=== PATIENT | male | born 1960 | race Caucasian/White ===

== ENCOUNTER 2023-04-01 22:30 | Observation (INO) ==
[2023-04-01 23:05] LABS: Basophils # (auto) 0.04 K/uL (0-0.2); Basophils % (auto) 0.4 %; Eosinophils # (auto) 0.11 K/uL (0-0.50); Hematocrit (blood only) 36.5 % (42.0-52.0); Hemoglobin 12.9 g/dl (14.0-18.0); Immature Granulocytes # (auto) 0.02 K/uL (0.01-0.20); Immature Granulocytes % (auto) 0.2 %; Lymphocytes % (auto) 15.8 %; Mean Corpuscular Hemoglobin 30.5 pg (25.0-34.0); Mean Corpuscular Hgb Conc 35.3 g/dL (32.0-36.0); Mean Corpuscular Volume 86.3 fL (80.0-100.0); Mean Platelet Volume 9.7 fL (9.4-12.4); Monocytes # (auto) 1.06 K/uL (0.11-0.59); Monocytes % (auto) 9.9 %; Neutrophils # (auto) 7.83 K/uL (1.40-6.50); Neutrophils % (auto) 72.7 %; Platelet Count 220 K/uL (130-400); RDW Standard Deviation 43.9 fL (36.4-46.3); Red Blood Count 4.23 M/uL (4.70-6.10); White Blood Count 10.76 K/ul (4.8-10.8)
[2023-04-01 23:21] LABS: Albumin Globulin Ratio 1.3 (0.9-2); Albumin Level 4.2 gm/dl (3.4-5.0); BUN Creatinine Ratio 15.7 (10-20); Bilirubin,Total 1.2 mg/dl (0.2-1.0); Calcium 9.1 mg/dl (8.6-10.3); Creatinine Clr Calc Pharmacy 79.6 ml/min; Est GFR (African American) 83.6 ml/min; Est GFR (Non-African American) 72.2 ml/min; Globulin 3.2 gm/dl (2.5-4.0); Potassium 3.7 mmol/L (3.5-5.1); Total Protein 7.4 gm/dl (6.0-8.3)
[2023-04-02 00:18] LABS: Appearance Urine Clear (Clear); Bilirubin Urine Negative (Negative); Blood Urine Negative (Negative); Color Urine Yellow; Glucose Urine UA 1+ (Negative); Ketones Urine Trace (Negative); Leukocyte Esterase Urine Negative (Negative); Nitrite Urine Negative (Negative); Protein Urine Negative (Negative); Specific Gravity Urine 1.016 (1.000-1.030); Urobilinogen Urine Negative (Negative); pH Urine 5.5 (4.5-7.5)
[2023-04-02] MEDS ORDERED: SODIUM CHLORIDE 0.9% 1000ML 1,000 ML IV ONE (00:43)
--- NOTE | 2023-04-02 00:49 | Emergency Department Note ---
Impression & Plan Diverticulitis of colon with perforation Admit to the [facility] ED Provider Note NAME: MANUEL SHAFER AGE: 62 SEX: M ARRIVES VIA: Walk-In INFORMANT: Patient and his ED PROVIDER(S): Terrie Reyes DO CHIEF COMPLAINT: Left lower quadrant abdominal pain PLAN: Disposition: Admit to the [facility] Condition: Guarded MEDICAL DECISION MAKING: This is a 62-year-old male patient who presents to the emergency department with left lower quadrant abdominal pain and chest congestion. Patient is also been complaining of some constipation for which she has been trying stool softeners. Symptoms have not been improving. Laboratory studies reveal no leukocytosis. Hemoglobin is stable at 12.9. The patient does have a mildly elevated glucose at 178. The patient is a [id number] diabetic. On physical exam, the patient has moderate discomfort to palpation in the left lower quadrant of the abdomen. Patient has had previous colonoscopies which show evidence of diverticulosis. He has had previous episodes of diverticulitis. CT scan of the abdomen/pelvis does show evidence of acute diverticulitis with possible microperforation. Patient will be treated with IV ceftriaxone and IV Flagyl. He will be placed on continued IV normal saline solution. I discussed the case with the [employer] and they will evaluate for further inpatient care. Triage Nursing notes reviewed and agree with them. Additional history obtained from the patient's is at the bedside Vital Signs: reviewed and unremarkable Differential diagnosis: Constipation, diverticulitis, colitis, dehydration ER treatment provided: Cardiac monitoring IV normal saline bolus IV ceftriaxone IV Flagyl Diagnostics interpreted by me: Cardiac Monitoring: Normal sinus rhythm at a rate of 93 Laboratory studies: See below Imaging studies: As per stat rad CT scan of the abdomen/pelvis: See report HPI: 62/M arrives for evaluation of left lower quadrant abdominal pain. Patient describes developing left lower quadrant abdominal pain approximately 3 days ago. He thought he may be constipated so he took stool softeners but got no relief. He is also developed some chest congestion with a productive cough of clear sputum. He is not a smoker. He denies any nausea or vomiting. PAST MEDICAL HISTORY:See Below PAST SURGICAL HISTORY:See Below FAMILY HISTORY:See Below SOCIAL HISTORY:See Below HOME MEDICATIONS:See list ALLERGIES:See list VITALS:See Below PHYSICAL EXAMINATION: HEENT: Head - normocephalic and atraumatic. Pupils are equal, round, and reactive to light. Extraocular eye muscles are intact, and sclera are anicteric. Nose - moist nasal mucosa without discharge. Mouth - moist buccal mucosa. Oropharynx is nonerythematous and there is no tonsillar exudate or edema noted. Neck: Supple; no JVD, nuchal rigidity, cervical lymphadenopathy, or auscultated bruits. Heart: Regular rate and rhythm. There is a normal S1 and S2 with no murmurs, clicks, or gallops appreciated. Lungs: Clear to auscultation bilaterally with no wheezes, rales, or rhonchi. Abdomen: Soft, exquisitely tender to touch in the left lower quadrant of the abd omen, with good bowel sounds. There are no palpable pulsatile masses or hepatosplenomegaly. There is no guarding, rigidity, or rebound noted. Extremities: No evidence of cyanosis, clubbing, or edema. There are easily palpable peripheral pulses. Skin: warm and dry with good turgor and no rashes. ED COURSE: Times/Reassessments: 0030: Patient was evaluated in room B9. A complete history and physical was performed. An order was placed for continuous cardiac monitoring. The patient was in a normal sinus rhythm at a rate of 93. IV lock was initiated and labs were drawn as above. Patient was bolused with a liter of normal saline solution. Patient will go for CT scan of the abdomen/pelvis. After an extended period of time, the CT was finally read by stat rad. I reviewed these results with the patient and his . He was treated with IV Rocephin and IV Flagyl. He was started on IV normal saline drip. I discussed the case with the [facility] Hospitalist and they will evaluate for further inpatient care. Terrie Reyes DO Past Med/Surg History Medical History Anemia, normocytic normochromic COVID-19 (~11/25/20) Diabetes Hypertension Hypothyroid Surgical History No pertinent past surgical history S/P appendectomy S/P knee surgery Family History Mother Lung cancer Father Stroke Stomach cancer Denies family history of Ovarian cancer Prostate cancer Myocardial infarction Breast cancer Colorectal cancer Social History Smoking Status: Never smoker Second Hand Exposure: No; Do You Dip or Chew Tobacco: No; Hx Alcohol Use: No Hx Substance Use: No Preferred Language: Guamanian Communication Ability: Effective Visual Impairment: No Limitations Hearing Ability: Normal Framing Consultant Required: No Beliefs That Will Affect Care: None marital status: Current Living Situation: Spouse current occupational status: employed How many Children do You have: 2 Feels Safe at Home: Yes Childhood Exposure to Second-Hand Smoke: Yes Diet: regular Diet Comment: Regular caffeine: Yes during the past year weight has: remained stable Dental Care, Regularly: Yes Physical Activity Frequency: Daily Seatbelt Use: sometimes Sunscreen Use: No Allergies Allergies Allergy/AdvReac Type Severity Reaction Status Date / Time loperamide [From Imodium A-D] Allergy Mild Rash Verified 08/11/22 07:53 Penicillins Allergy Rash Verified 08/11/22 07:53 Home Meds Home Medications Medication Instructions Recorded Confirmed aspirin 81 mg tablet,delayed 81 mg PO QAM 03/21/19 08/11/22 release blood-glucose meter #1 ea 03/12/20 08/11/22 lancets #50 ea 03/12/20 08/11/22 ferrous sulfate 325 mg (65 mg 325 mg PO DAILY 08/11/22 08/11/22 iron) tablet,delayed release Previous Rx's Medication Instructions Recorded blood sugar diagnostic #100 ea 05/19/21 levothyroxine 75 mcg tablet 75 mcg PO DAILY #90 tabs 02/05/22 amlodipine 5 mg tablet 5 mg PO DAILY #90 tabs 06/02/22 atorvastatin 40 mg tablet 40 mg PO QAM #90 tabs 06/26/22 losartan 100 mg tablet 100 mg PO QAM #90 tabs 10/12/22 glipizide 10 mg tablet, extended 10 mg PO DAILY #90 tabs 01/06/23 release 24 hr metformin 500 mg tablet,extended See Rx Instructions PO .COMPLEX 03/11/23 release 24 hr #120 tabs Results & Data (ED) Vital Signs Vital Signs - 24 hr 04/01/23 22:30 04/02/23 00:01 04/02/23 02:15 Temperature 36.7 C Temperature Source Temporal Artery Scan Pulse Rate 104 H Pulse Rate [Finger] 93 H 90 Respiratory Rate 18 20 16 Respiratory Effort / Characteristics Non-Labored Spontaneous Non-Labored Spontaneous Respiratory Depth Normal Normal Blood Pressure 165/86 H Blood Pressure [Left Arm] 129/80 114/60 Blood Pressure Mean 112 Blood Pressure Mean [Left Arm] 96 78 Blood Pressure Position Sitting Pulse Oximetry 97 95 94 Oxygen Delivery Method Room Air Room Air Sepsis Recent Fever Within 48 Hours No Sepsis New/Unexplained Change in Mental Status No Sepsis Action Taken by Nursing No Action Required 04/02/23 04:11 Temperature Temperature Source Pulse Rate Pulse Rate [Finger] 82 Respiratory Rate 18 Respiratory Effort / Characteristics Respiratory Depth Blood Pressure Blood Pressure [Left Arm] 102/65 Blood Pressure Mean Blood Pressure Mean [Left Arm] 77 Blood Pressure Position Pulse Oximetry 95 Oxygen Delivery Method Room Air Sepsis Recent Fever Within 48 Hours Sepsis New/Unexplained Change in Mental Status Sepsis Action Taken by Nursing Laboratory Data 04/01/23 22:40 04/01/23 22:40 Lab Results 04/01/23 04/01/23 04/02/23 Range/Units 22:40 22:40 Unknown WBC 10.76 (4.8-10.8) K/ul RBC 4.23 L (4.70-6.10) M/uL Hgb 12.9 L (14.0-18.0) g/dl Hct 36.5 L (42.0-52.0) % MCV 86.3 (80.0-100.0) fL MCH 30.5 (25.0-34.0) pg MCHC 35.3 (32.0-36.0) g/dL RDW Std Deviation 43.9 (36.4-46.3) fL RDW Coeff of Felice 14.0 (11.5-14.5) % Plt Count 220 (130-400) K/uL MPV 9.7 (9.4-12.4) fL Immature Gran % (Auto) 0.2 % Neut % (Auto) 72.7 % Lymph % (Auto) 15.8 % [place] % (Auto) 9.9 % Eos % (Auto) 1.0 % Baso % (Auto) 0.4 % Neut # (Auto) 7.83 H (1.40-6.50) K/uL Lymph # (Auto) 1.70 (1.2-3.4) K/uL [place] # (Auto) 1.06 H (0.11-0.59) K/uL Eos # (Auto) 0.11 (0-0.50) K/uL Baso # (Auto) 0.04 (0-0.2) K/uL Immature Gran # (Auto) 0.02 (0.01-0.20) K/uL Sodium 135 L (136-145) mmol/L Potassium 3.7 (3.5-5.1) mmol/L Chloride 100 (98-107) mmol/L Carbon Dioxide 27 (21-32) mmol/L Anion Gap 8 (3-11) BUN 17 (6-23) mg/dl Creatinine 1.08 (0.6-1.4) mg/dl Est Cr Clr Drug Dosing 79.6 ml/min Est GFR ( Amer) 83.6 ml/min Est GFR (Non-Af Amer) 72.2 ml/min BUN/Creatinine Ratio 15.7 (10-20) Glucose 178 H (70-99(Fasting)) mg/dl Calcium 9.1 (8.6-10.3) mg/dl Total Bilirubin 1.2 H (0.2-1.0) mg/dl AST 14 (13-39) U/L ALT 12 (7-52) U/L Alkaline Phosphatase 62 (34-104) U/L Total Protein 7.4 (6.0-8.3) gm/dl Albumin 4.2 (3.4-5.0) gm/dl Globulin 3.2 (2.5-4.0) gm/dl Albumin/Globulin Ratio 1.3 (0.9-2) Lipase 134 H (11-82) U/L Urine Color Yellow Urine Appearance Clear (Clear) Urine pH 5.5 (4.5-7.5) Ur Specific [place] 1.016 (1.000-1.030) Urine Protein Negative (Negative) Urine Glucose (UA) 1+ H (Negative) Urine Ketones Trace H (Negative) Urine Blood Negative (Negative) Urine Nitrite Negative (Negative) Urine Bilirubin Negative (Negative) Urine Urobilinogen Negative (Negative) Ur Leukocyte Esterase Negative (Negative) Administered Medications Sodium Chloride (Nss) 500 mls @ 125 mls/hr IV .Q4H EILEEN Stop: 05/02/23 05:14 Last Admin: 04/02/23 05:36 Dose: 125 mls/hr Documented By: KURT Discontinued Medications Sodium Chloride (Nss 1000ml) 1,000 mls @ 999 mls/hr IV .Q1H1M ONE Stop: 04/02/23 01:43 Last Infusion: 04/02/23 02:52 Dose: 0 mls/hr Documented By: Admin: 04/02/23 01:42 Dose: 999 mls/hr Documented By: SALLY Metronidazole (Flagyl) 500 mg in 100 mls @ 100 mls/hr IV NOW STA; Protocol Stop: 04/02/23 06:03 Last Admin: 04/02/23 05:41 Dose: 100 mls/hr Documented By: KURT Ioversol (Optiray 320 100ml) 100 ml IV ONCE ONE Stop: 04/02/23 01:30 Last Admin: 04/02/23 01:29 Dose: 93 ml Documented By: BERNARDINO Imaging Data Radiologist's Impression: Abdomen/Pelvis CT 04/02/23 00:43 Exam(s): CT ABDOMEN + PELVIS With Contrast IV Amt: 93 ML OPTIRAY 320 EXAM: CT Abdomen and Pelvis With Intravenous Contrast CLINICAL HISTORY: Reason for exam: eval for diverticulitis. TECHNIQUE: Axial computed tomography images of the abdomen and pelvis with intravenous contrast. CTDI is 26.11 mGy and DLP is 1417.74 mGy-cm. Automated exposure control was utilized for the study. A dose lowering technique was utilized adhering to the principles of ALARA. CONTRAST: Patient received 93 ML OPTIRAY 320 of IV contrast COMPARISON: None FINDINGS: Lung bases: Mild dependent atelectasis bilaterally. ABDOMEN: Liver: Hepatomegaly. Gallbladder and bile ducts: Under distention of the gallbladder limits evaluation. No calcified stones. No ductal dilation. Pancreas: Unremarkable. No mass. No ductal dilation. Spleen: Mild splenomegaly. Adrenals: Unremarkable. No mass. Kidneys and ureters: Nonspecific mild bilateral perinephric fat stranding. Small hypodensity in the left kidney is too small to definitively characterize. No hydronephrosis or obstructing stone. Stomach and bowel: Diverticulosis. Inflammatory changes of the distal descending colon, compatible with acute diverticulitis. Probable prominently inflamed diverticulum along the posterior aspect of the distal descending colon. Small contained perforation is not entirely excluded. No small bowel obstruction. PELVIS: Appendix: Appendix is not definitely visualized on this exam. Bladder: Unremarkable. No mass. Reproductive: Unremarkable as visualized. ABDOMEN and PELVIS: Intraperitoneal space: Unremarkable. No free air. No significant fluid collection. Bones/joints: Degenerative changes of the spine. No acute fracture. No dislocation. Soft tissues: Small fat-containing umbilical hernia. Vasculature: Unremarkable. No abdominal aortic aneurysm. Lymph nodes: Unremarkable. No enlarged lymph nodes. IMPRESSION: Distal descending colon diverticulitis. Probable prominently inflamed diverticulum along the posterior aspect of the distal descending colon. Small contained perforation is not entirely excluded. Hepatosplenomegaly. Electronically signed by: Pietro Godoy M.D. 04/02/23 04:50 AM Discharge Plan Visit Data Chief Complaint: Abdominal Pain Stated Complaint: L CORNER STOMACH PAIN,COUGH,CONSTIPATION ED Provider: Terrie Reyes Discharge Problem: Diverticulitis of colon with perforation Forms Stand Alone Forms: [facility] [employer] Prescriptions Prescriptions: No Action (DME) blood sugar diagnostic Strip See Rx Instructions .ROUTE .MEDSUPPLY Qty: 100 11RF Rx Instructions: As directed levothyroxine 75 mcg tablet 75 mcg PO DAILY Qty: 90 3RF amlodipine 5 mg tablet 5 mg PO DAILY Qty: 90 3RF atorvastatin 40 mg tablet 40 mg PO QAM Qty: 90 3RF losartan 100 mg tablet 100 mg PO QAM Qty: 90 1RF glipizide 10 mg tablet extended release 24hr 10 mg PO DAILY Qty: 90 1RF metformin 500 mg tablet extended release 24 hr See Rx Instructions PO .COMPLEX Qty: 120 5RF Rx Instructions: PO 4 tablets daily; (DME) blood-glucose meter Misc See Rx Instructions .ROUTE .MEDSUPPLY Qty: 1 Rx Instructions: As directed (DME) lancets Misc See Rx Instructions .ROUTE .MEDSUPPLY Qty: 50 Rx Instructions: TESTS ONCE DAILY ferrous sulfate 325 mg (65 mg iron) tablet,delayed release (DR/EC) 325 mg PO DAILY aspirin 81 mg Tablet,Delayed Release (Dr/Ec) 81 mg PO QAM Referrals Referrals: Harjinder Burgos CRNP [Primary Care Provider] -
[2023-04-02] MEDS ORDERED: OPTIRAY 320 100ml IV ONE (01:29)
--- NOTE | 2023-04-02 04:51 | CT Scan Report ---
Exam(s): CT ABDOMEN + PELVIS With Contrast IV Amt: 93 ML OPTIRAY 320 EXAM: CT Abdomen and Pelvis With Intravenous Contrast CLINICAL HISTORY: Reason for exam: eval for diverticulitis. TECHNIQUE: Axial computed tomography images of the abdomen and pelvis with intravenous contrast. CTDI is 26.11 mGy and DLP is 1417.74 mGy-cm. Automated exposure control was utilized for the study. A dose lowering technique was utilized adhering to the principles of ALARA. CONTRAST: Patient received 93 ML OPTIRAY 320 of IV contrast COMPARISON: None FINDINGS: Lung bases: Mild dependent atelectasis bilaterally. ABDOMEN: Liver: Hepatomegaly. Gallbladder and bile ducts: Under distention of the gallbladder limits evaluation. No calcified stones. No ductal dilation. Pancreas: Unremarkable. No mass. No ductal dilation. Spleen: Mild splenomegaly. Adrenals: Unremarkable. No mass. Kidneys and ureters: Nonspecific mild bilateral perinephric fat stranding. Small hypodensity in the left kidney is too small to definitively characterize. No hydronephrosis or obstructing stone. Stomach and bowel: Diverticulosis. Inflammatory changes of the distal descending colon, compatible with acute diverticulitis. Probable prominently inflamed diverticulum along the posterior aspect of the distal descending colon. Small contained perforation is not entirely excluded. No small bowel obstruction. PELVIS: Appendix: Appendix is not definitely visualized on this exam. Bladder: Unremarkable. No mass. Reproductive: Unremarkable as visualized. ABDOMEN and PELVIS: Intraperitoneal space: Unremarkable. No free air. No significant fluid collection. Bones/joints: Degenerative changes of the spine. No acute fracture. No dislocation. Soft tissues: Small fat-containing umbilical hernia. Vasculature: Unremarkable. No abdominal aortic aneurysm. Lymph nodes: Unremarkable. No enlarged lymph nodes. IMPRESSION: Distal descending colon diverticulitis. Probable prominently inflamed diverticulum along the posterior aspect of the distal descending colon. Small contained perforation is not entirely excluded. Hepatosplenomegaly. Electronically signed by: Pietro Godoy M.D. 04/02/23 04:50 AM
[2023-04-02] MEDS ORDERED: cefTRIAXone SODIUM 1,000 MG in DEXTROSE 5% AD-VAN 50 ML IV STA (05:04)
[2023-04-02] MEDS ORDERED: metroNIDAZOLE 500 MG/100 ML BAG IV STA (05:04)
--- NOTE | 2023-04-02 05:31 | History & Physical Report ---
Date of Service April 02, 2023 Assessment & Plan (1) Diverticulitis: Plan: 62yo Male with PMH DM2, HTN, hypothyroidism here for abd pain found to have diverticulitis. Diverticulitis -CT A/P: Distal descending colon diverticulitis. Probable prominently inflamed diverticulum along the posterior aspect of the distal descending colon. Small contained perforation is not entirely excluded. Hepatosplenomegaly. -in ED received ceftriaxone metronidazole 1L NSS -admit to med/surg obs -WBC wnl -NPO -pain control with prn toradol, tylenol DM2 -ordered SSI -HTN -continue amlodipine, losartan Hypothyroidism -continue levothyroxine FENa: NPO Code Status: Full DVT PPX: ambulatory Dispo: med/surg Tawanna Oviedo D.O. PGY 3, FCM (2) Hypothyroid: (3) Hypertension: (4) Diabetes: History of Present Illness Chief Complaint: Diverticulitis Primary Care Provider: OSMANY Wallace 62yo Male with PMH DM2, HTN, hypothyroidism here for abd pain found to have diverticulitis. Patient states his abd pain has been ongoing 3-4 days in the left lower quadrant, also notes a decrease in BM he usually has 4 soft BMs daily which has decreased to 2BMs daily. Patient states his encouraged him to be seen at the ED. He also describes congestion mild SOB cough ongoing 1 week, no change indoors vs. outdoors sitting vs. laying down. Patient denies any fever headache nausea loss of appetite. His helps him with medication. Allergies Allergy/AdvReac Type Severity Reaction Status Date / Time loperamide [From Imodium A-D] Allergy Mild Rash Verified 04/02/23 08:10 Penicillins Allergy Rash Verified 04/02/23 08:10 Home Medications Medication Instructions Recorded Confirmed Type aspirin 81 mg tablet,delayed 81 mg PO PM 03/21/19 04/02/23 History release blood-glucose meter #1 ea 03/12/20 04/02/23 History lancets #50 ea 03/12/20 04/02/23 History blood sugar diagnostic #100 ea 05/19/21 04/02/23 Rx losartan 100 mg tablet 100 mg PO QAM #90 tabs 10/12/22 04/02/23 Rx glipizide 10 mg tablet, extended 10 mg PO DAILY #90 tabs 01/06/23 04/02/23 Rx release 24 hr amlodipine 5 mg tablet 5 mg PO PM 04/02/23 04/02/23 History atorvastatin 40 mg tablet 40 mg PO HS 04/02/23 04/02/23 History levothyroxine 75 mcg tablet 75 mcg PO QAM 04/02/23 04/02/23 History metformin 500 mg tablet,extended 2,000 mg PO PM 04/02/23 04/02/23 History release 24 hr ciprofloxacin HCl 500 mg tablet 500 mg PO BID #16 tabs 04/03/23 Rx metronidazole 500 mg tablet 500 mg PO TID #24 tabs 04/03/23 Rx Past Med/Surg History Medical History Anemia, normocytic normochromic COVID-19 (~11/25/20) Diabetes Hypertension Hypothyroid Surgical History No pertinent past surgical history S/P appendectomy S/P knee surgery Family History Mother Lung cancer Father Stroke Stomach cancer Denies family history of Ovarian cancer Prostate cancer Myocardial infarction Breast cancer Colorectal cancer Social History Smoking Status: Never smoker Second Hand Exposure: No; Do You Dip or Chew Tobacco: No; Hx Alcohol Use: No Hx Substance Use: No Preferred Language: Slovak Communication Ability: Effective Visual Impairment: No Limitations Hearing Ability: Normal College Administrator Required: No Beliefs That Will Affect Care: None marital status: Current Living Situation: Spouse current occupational status: employed How many Children do You have: 2 Feels Safe at Home: Yes Childhood Exposure to Second-Hand Smoke: Yes Diet: regular Diet Comment: Regular caffeine: Yes during the past year weight has: remained stable Dental Care, Regularly: Yes Physical Activity Frequency: Daily Seatbelt Use: sometimes Sunscreen Use: No Assistive Devices: None Physical Exam Constitutional: well developed, well nourished, cooperative and comfortable Eyes: PERRL, conjunctivae normal, anicteric sclerae ENMT: external ear and nose normal, oropharynx normal Neck: trachea midline, no thyromegaly Respiratory: normal respiratory effort, lungs clear to auscultation Cardiovascular: Rate/Rhythm: regular rate and regular rhythm Gastrointestinal (Abdomen): Inspection/Auscultation: + abdomen distended Percussion/Palpation: + abdomen tender (LLQ) and abdomen soft Skin: no rashes, warm and dry Results & Data Results & Data Vital Signs (Past 12 Hours) Vital Signs Temp Pulse Pulse Resp BP BP Pulse Ox 04/02/23 04:11 82 18 102/65 95 04/02/23 02:15 90 16 114/60 94 04/02/23 00:01 93 H 20 129/80 95 04/01/23 22:30 36.7 C 104 H 18 165/86 H 97 O2 Del Method 04/02/23 04:11 Room Air 04/02/23 02:15 04/02/23 00:01 Room Air 04/01/23 22:30 Room Air Supervising Physician Co-Signing Physician Notes Attending addendum: I have physically seen this patient, have supervised the medical residents activities, and agree with the H&P unless as otherwise noted. Assessment and Plan: Diverticulitis/ question of contained microperforation- N.p.o. status post 1 L normal saline in ED NSS at 80 mils per hour Ceftriaxone plus Flagyl IV Admit to medical surgical Pain control with Tylenol and Toradol as noted Diabetes mellitus- Placed on Accu-Cheks with SSI Hypertension- Amlodipine and losartan with hold parameters Hypothyroidism- Continue levothyroxine Remaining orders and notations as noted Resident Activity Tracking Resident Involvement: Resident Care Provided Care Provided: Adult Hospital Medicine
[2023-04-02] MEDS: SODIUM CHLORIDE 0.9% 500 ML IV SCH ×3 (05:36→14:34)
[2023-04-02] MEDS ORDERED: KETOROLAC TROMETHAMINE 15 MG/ML VIAL IV PRN (05:40)
[2023-04-02] MEDS ORDERED: ACETAMINOPHEN 325 MG TAB PO PRN (05:41)
[2023-04-02] MEDS ORDERED: GLUCAGON FOR INJ 1 MG VIAL SQ PRN (10:14)
[2023-04-02] MEDS ORDERED: BENZONATATE 100 MG CAPSULE PO PRN (10:14)
[2023-04-02] MEDS ORDERED: GLUCOSE 40% GEL 15 GM TUBE PO PRN (10:14)
[2023-04-02] MEDS ORDERED: CARBOHYDRATES FOR HYPOGLYCEMIA PO PRN (10:14)
[2023-04-02] MEDS ORDERED: DEXTROSE 50% 50 ML SYRINGE IV PRN (10:14)
[2023-04-02] MEDS ORDERED: GLUCOSE 10 TAB/TUBE PO PRN (10:14)
[2023-04-02] MEDS ORDERED: Nursing to Pharmacy Communication SCH (11:15)
[2023-04-02] MEDS: INSULIN ASPART PER UNIT CHARGE SC SCH ×4 (11:15→17:40)
[2023-04-02] MEDS: ATORVASTATIN 40 MG TAB PO SCH (11:22)
[2023-04-02] MEDS: LEVOTHYROXINE SODIUM 75 MCG TABLET PO SCH (11:22)
[2023-04-02] MEDS: ASPIRIN 81 MG ECTAB PO SCH (11:22)
[2023-04-02] MEDS: amLODIPine BESYLATE 5 MG TAB PO SCH (11:22)
[2023-04-02] MEDS: LOSARTAN POTASSIUM 50 MG TAB PO SCH (11:22)
[2023-04-02] MEDS: LANTUS PER UNIT CHARGE SQ SCH ×2 (11:30→20:26)
[2023-04-02] MEDS: metroNIDAZOLE 500 MG/100 ML BAG IV SCH ×2 (13:30→22:09)
--- NOTE | 2023-04-02 13:37 | History & Physical Bridge Note ---
Date of Service April 02, 2023 History & Physical Bridge Note I have examined the patient, reviewed the History & Physical and in the interval since the performance of the History & Physical I have noted the following changes of clinical significance: Pt feeling better, pain in LLQ is almost completely resolved. No nausea, CP, SOB, headache. No trouble voiding. Feeling hungry VSS NAD, AAOx3 RRR no mgr CTAB no wcr Abd +BS soft NT ND Ext no edema Advance diet to clear liquids, reduce IVFs to 100mL/hr continue ctx and flagyl advance diet likely to low fiber tomorrow and discharge to home recommend colonoscopy in 6-8 weeks ordered CBC, CMP, lipase for tomorrow as lipase midly elevated-likely nonspecific TBili mild elevation likely Gilbert's
[2023-04-02] MEDS ORDERED: SODIUM CHLORIDE 0.9% INJ 100 ML BAG IV SCH (18:00)
[2023-04-02] MEDS: SODIUM CHLORIDE 0.9% 1000ML 1,000 ML IV SCH (18:19)
[2023-04-03] MEDS: SODIUM CHLORIDE 0.9% 1000ML 1,000 ML IV SCH (05:17)
[2023-04-03] MEDS: metroNIDAZOLE 500 MG/100 ML BAG IV SCH (05:20)
[2023-04-03] MEDS: LEVOTHYROXINE SODIUM 75 MCG TABLET PO SCH (06:14)
[2023-04-03] MEDS ORDERED: cefTRIAXone SODIUM 1,000 MG in DEXTROSE 5% AD-VAN 50 ML IV SCH (06:30)
[2023-04-03 07:18] LABS: Basophils # (auto) 0.04 K/uL (0-0.2); Basophils % (auto) 0.6 %; Eosinophils # (auto) 0.21 K/uL (0-0.50); Eosinophils % (auto) 3.1 %; Hematocrit (blood only) 36.2 % (42.0-52.0); Hemoglobin 12.5 g/dl (14.0-18.0); Immature Granulocytes # (auto) 0.02 K/uL (0.01-0.20); Immature Granulocytes % (auto) 0.3 %; Lymphocytes # (auto) 1.05 K/uL (1.2-3.4); Lymphocytes % (auto) 15.4 %; Mean Corpuscular Hgb Conc 34.5 g/dL (32.0-36.0); Mean Corpuscular Volume 86.8 fL (80.0-100.0); Mean Platelet Volume 9.3 fL (9.4-12.4); Monocytes # (auto) 0.76 K/uL (0.11-0.59); Monocytes % (auto) 11.1 %; Neutrophils # (auto) 4.74 K/uL (1.40-6.50); Neutrophils % (auto) 69.5 %; Platelet Count 222 K/uL (130-400); RDW Coefficient of Variation 13.6 % (11.5-14.5); RDW Standard Deviation 43.3 fL (36.4-46.3); Red Blood Count 4.17 M/uL (4.70-6.10); White Blood Count 6.82 K/ul (4.8-10.8)
[2023-04-03 07:49] LABS: Albumin Globulin Ratio 1.4 (0.9-2); BUN Creatinine Ratio 10.9 (10-20); Bilirubin,Total 0.8 mg/dl (0.2-1.0); Calcium 8.7 mg/dl (8.6-10.3); Est GFR (African American) 101.5 ml/min; Est GFR (Non-African American) 87.6 ml/min; Globulin 2.9 gm/dl (2.5-4.0); Potassium 3.7 mmol/L (3.5-5.1); Total Protein 6.9 gm/dl (6.0-8.3)
[2023-04-03] MEDS: ATORVASTATIN 40 MG TAB PO SCH (08:46)
[2023-04-03] MEDS: LOSARTAN POTASSIUM 50 MG TAB PO SCH (08:46)
[2023-04-03] MEDS: amLODIPine BESYLATE 5 MG TAB PO SCH (08:46)
[2023-04-03] MEDS: ASPIRIN 81 MG ECTAB PO SCH (08:46)
[2023-04-03] MEDS: INSULIN ASPART PER UNIT CHARGE SC SCH ×2 (09:11→12:45)
[2023-04-03] MEDS: LANTUS PER UNIT CHARGE SQ SCH (09:11)
--- NOTE | 2023-04-03 13:16 | Discharge Summary ---
Discharge Summary Date of Service April 03, 2023 Notes For Next Care Provider Needs follow up colonoscopy in 6-8 weeks. Medication Changes From Visit Cipro 500mg po bid x 8 days metronidazole 500mg po tid x 8 days Admission HPI Per Admitting Provider 62yo Male with PMH DM2, HTN, hypothyroidism here for abd pain found to have diverticulitis. Patient states his abd pain has been ongoing 3-4 days in the left lower quadrant, also notes a decrease in BM he usually has 4 soft BMs daily which has decreased to 2BMs daily. Patient states his encouraged him to be seen at the ED. He also describes congestion mild SOB cough ongoing 1 week, no change indoors vs. outdoors sitting vs. laying down. Patient denies any fever headache nausea loss of appetite. His helps him with medication. Principal Dx & Hospital Course #1 = Principal Diagnosis (1) Diverticulitis: 62yo Male with PMH DM2, HTN, hypothyroidism here for abd pain found to have diverticulitis. Acute Diverticulitis -CT A/P: Distal descending colon diverticulitis. Probable prominently inflamed diverticulum along the posterior aspect of the distal descending colon. Small contained perforation is not entirely excluded. Hepatosplenomegaly. - received ceftriaxone and metronidazole x 2 days -received IVFs -was NPO for about 4 hours and then advanced to clear liquids as he had no further abd pain. He then was advanced to low fiber diet by the following day and had no pain or nausea. Is moving bowels as per his usual daily amount -afebrile, no leukocytosis, no ttp on abdominal exam stable for dc to home last colonscopy was [address] Quarles of [facility]-showed nodular mucosa in 2 areas of colon, diverticulosis, biopsies of nodular mucosa benign--f/u colonoscopy recommended in 6-8 weeks due to diverticulitis episode-referral to be made through nurse navigator DM2 -ordered SSI can restart metformin on 04/04 and restart glipizide after discharge -HTN -continue amlodipine, losartan Hypothyroidism -continue levothyroxine Dispo-doing very well, stable for dc to home (2) Hypothyroid: (3) Hypertension: (4) Diabetes: Discharge Exam Constitutional WD/WN, vitals as above Respiratory normal respiratory effort, lungs clear to auscultation Cardiovascular RRR, no murmur, no edema Gastrointestinal (Abdomen) normal bowel sounds, soft, nontender, no hepatosplenomegaly Psychiatric A+Ox3, euthymic affect Updated Medication List Medication Instructions Recorded Confirmed Type aspirin 81 mg tablet,delayed 81 mg PO PM 03/21/19 04/02/23 History release blood-glucose meter #1 ea 03/12/20 04/02/23 History lancets #50 ea 03/12/20 04/02/23 History blood sugar diagnostic #100 ea 05/19/21 04/02/23 Rx ferrous sulfate 325 mg (65 mg 325 mg PO PM 08/11/22 04/02/23 History iron) tablet,delayed release losartan 100 mg tablet 100 mg PO QAM #90 tabs 10/12/22 04/02/23 Rx glipizide 10 mg tablet, extended 10 mg PO DAILY #90 tabs 01/06/23 04/02/23 Rx release 24 hr amlodipine 5 mg tablet 5 mg PO PM 04/02/23 04/02/23 History atorvastatin 40 mg tablet 40 mg PO HS 04/02/23 04/02/23 History levothyroxine 75 mcg tablet 75 mcg PO QAM 04/02/23 04/02/23 History metformin 500 mg tablet,extended 2,000 mg PO PM 04/02/23 04/02/23 History release 24 hr ciprofloxacin HCl 500 mg tablet 500 mg PO BID #16 tabs 04/03/23 Rx metronidazole 500 mg tablet 500 mg PO TID #24 tabs 04/03/23 Rx Hospital Stay Data Consultations 04/02/23 05:06 ED Decision to Admit Stat 04/03/23 13:08 Consult JESSICAG tapper hand Routine Diagnostic Imagining Performed 04/02/23 00:43 CT Abd and Pelvis [CT abd pelvis IV con only] Stat Pending Results Patient Have Any Pending Studies at Discharge: No Discharge Instructions Given to Patient (Per Discharging Provider) Please finish out the course of antibiotics with Cipro and Flagyl for 8 more days. If you develop worsening abdominal pain, nausea/vomiting, or fevers, please return to the hospital. You will need to have a colonoscopy in 6-8 weeks. Total Time Total Time Spent Total Time Spent (In Minutes): 35 min Coding Level of Care Code 60424 INP/OBS DISCH >30 MIN Diagnoses Diverticulitis K57.92 Hypothyroid E03.9 Hypertension I10 Diabetes E11.9
--- NOTE | 2023-04-03 19:55 | Billing Data ---
Date of Service April 03, 2023 Coding Level of Care Code 16574 INT INP/OBS CARE
== END 2023-04-03 13:52 | disposition home or self-care (01) | DRG 391 ==
LOC: ED 22:30 → 3W 04-02 06:53 → SUATTDRO 04-02 06:53 → INTOOBSV 04-02 06:53 → 3W 04-02 08:55